=== PATIENT | female | born 1990 | race Caucasian/White ===

== ENCOUNTER 2019-02-18 00:14 | Observation (INO) | payer SELFPAY ==
[~2019-02-18] VITALS: Ht 165.1 cm; Wt 54.5 kg
[2019-02-18] VITALS (22 sets, daily range): BP systolic 80–109; BP diastolic 53–77
--- NOTE | 2019-02-18 00:20 | NUR ---
PT. TO ROOM 10 AFTER PT. FRIENDS CALLED EMS STATING PT. OVER DOSED ON SUSPECTED AMBIEN. EMPTY CONTAINERS FOUND ON FLOOR. THEY STATE PT. HAD VOMITED AND SOILED HERSELF WITH BM. UPON ARRIVAL TO ED PT. WAS SLURING HER WORDS. WHEN ASKED IF SHE TRIED TO KILL HERSELF PT. DID NOT ANSWER. PT. STOMACH HAD CUT DARNELL ON IT. AND ALSO SOME ON HER FOREARMS. SKIN WARM AND DRY TO TOUCH, COLOR PALE RESP. EVEN AND UNLABORED.
--- NOTE | 2019-02-18 00:42 | NUR ---
IVF STARTED PER MD ORDER.
[2019-02-18 00:44] LABS: HEMOGLOBIN 12.4 g/dl (12.0-16.0); IMMATURE GRANULOCYTES 0.5 % (0.0-5.0); MEAN CELL VOLUME 88.7 fL CALC (80.0-100.0); MEAN CORPUSCULAR HGB 29.7 pG CALC (26.0-32.0); MEAN CORPUSCULAR HGB CONC 33.5 g/L CALC (32.0-36.0); NEUT# 13.45 thou/uL (2.00-7.15); RED BLOOD COUNT 4.17 mill/uL (4.20-5.60); RED CELL DISTRI WIDTH 11.9 % (11.5-15.5)
--- NOTE | 2019-02-18 00:45 | NUR ---
MICHAELS CATH INSERTED. PATIENT AND DRAINING A SCANT AMT. OF YELLOW URINE.
[2019-02-18 01:08] LABS: ALBUMIN 4.1 g/dL (3.2-5.0); ALKALINE PHOSPHATASE 50 u/l (38-126); ANION GAP 15 (6-22 (CALC)); BILIRUBIN, TOTAL 0.7 mg/dL (0.0-1.4); BUN 14 mg/dL (7-17); BUN/CREATININE RATIO 23 (12-20 (CALC)); CARBON DIOXIDE 21 mmol/l (22-30); CHLORIDE 107 mmol/l (95-108); CREATININE 0.6 mg/dL (0.5-1.0); GFR > 60 ML/MIN (>=60 (CALC)); GFR FOR AFR.AMER. > 60 ML/MIN (>=60 (CALC)); MAGNESIUM 1.5 mg/dL (1.6-2.3); POTASSIUM 3.7 mmol/l (3.5-5.1); SGOT/AST 21 u/l (14-36); SODIUM 139 mmol/l (137-146)
[2019-02-18 01:14] LABS: ETHYL ALCOHOL 0 mg/dl (0-30)
--- NOTE | 2019-02-18 01:20 | NUR ---
PT. RESTING QUIETLY IN BED. WILL AROUSE BUT QUICKLY RETURNS TO SLEEP. RESP. EVEN AMD UNLABORED.
[2019-02-18 02:00] LABS: URINE BILIRUBIN - DIPSTICK NEGATIVE (NEGATIVE); URINE BLOOD DIPSTICK NEGATIVE (NEGATIVE); URINE COLOR YELLOW; URINE GLUCOSE - DIPSTICK 500 mg/dL (NEGATIVE); URINE KETONE 40 mg/dL (NEGATIVE); URINE LEUK ESTERASE NEGATIVE (NEGATIVE); URINE NITRITE - DIPSTICK NEGATIVE (Negative); URINE PROTEIN - DIPSTICK NEGATIVE (NEG-TRACE); URINE UROBILINOGEN - DIPSTICK 0.2 E.U./dL (0.2)
[2019-02-18 02:04] LABS: BARBITURATES NEGATIVE (NEGATIVE); COCAINE NEGATIVE (NEGATIVE); METHADONE NEGATIVE (NEGATIVE); OXCYCODONE NEGATIVE (NEGATIVE); TETRAHYDROCANNABIONOL NEGATIVE (NEGATIVE); TRICYLIC ANTIDEPRESSANTS NEGATIVE (NEGATIVE)
--- NOTE | 2019-02-18 02:23 | NUR ---
Admission Note Report Given to: CHUCK SANDERS Transported by: Wheelchair X Stretcher Transported with: X Nurse Transporter X Patent IV O2 X Transmission Line Engineer
--- NOTE | 2019-02-18 02:33 | NUR ---
MICHAELS CATH EMPTIED FRO 500 ML CLEAR YELLOW URINE.
--- NOTE | 2019-02-18 02:35 | NUR ---
PT. TAKEN TO ICU VIA STRETCHR.
--- NOTE | 2019-02-18 02:40 | NUR ---
PATIENT ARRIVES VIA ER STRETCHWR WITH NURSE KALPANA. PATIENT SELF TRANSFERS TO BED. ON ROOM AIR. HEAD TO TOE NURSING ASSESSMENT PERFORMED. PATIENT DROWSY AND AROUSES WHEN SPOKEN TO ONLY, ORIENTED X3. WHEN ASKED QUESTIONS REGARDING MEDICAL HISTORY PATIENT DENIES, PATIENT STATES, " I DON'T REMEMBER TO MOST QUESTIONS." POC EXPLAINED TO PATIENT. SITTER EXPLAINED TO PATIENT. ALSO EXPLAINE SHE CANNOT HAVE PERSONAL BELONGINGS AT BEDSIDE, SHE AGREES. SITTER AT BEDSIDE. LFA EMS SITE INTACT AND FLUSHES. PATIENT HAS SCRATCH LIKE LACERATIONS ON ABDOMEN, DRIED. SELF REPOSITIONS. CALL LIGHT WITHIN REACH. WILL CONTINUE TO MONITOR.
--- NOTE | 2019-02-18 04:22 | NUR ---
PATIENT LAYING SUPINE, EYES CLOSED, EASILY AROUSES WHEN SPOKEN TO. SITTER AT BEDSIDE. CALL LIGHT WITHIN REACH.
--- NOTE | 2019-02-18 05:10 | NUR ---
ALEX [facility] CALLED TO RECEIVE UPDATE OF PATIENT. ASKED FOR LAB VALUES, LAST VITALS. HE REPORTED HE WILL CALL AGAIN TODAY FOR MORE UPDATES.
--- NOTE | 2019-02-18 06:15 | NUR ---
PATIENT LAYS SUPINE, RESTING WITH EYES CLOSED. NO ACUTE DISTRESS SHOWN. SITTER AT BEDSIDE. CALL LIGHT WITHIN REACH.
--- NOTE | 2019-02-18 06:45 | NUR ---
RECVD REPORT TOMMY WOODS @START OF SHIFT
--- NOTE | 2019-02-18 07:30 | NUR ---
BREAKFAST TRAY PLACED IN ROOM. PT STATES SHES NOT HUNGRY. TRAY LEFT. SITTER AT BEDSIDE.
--- NOTE | 2019-02-18 09:24 | NUR ---
DR MON @BEDSIDE ASSESSING PT. PT EXTREMELY RUDE TOWARD STAFF. PT ADMITS TO DEPRESSION BUT DOESNT REMEMBER TAKING MEDICATION LAST NIGHT.
--- NOTE | 2019-02-18 09:35 | NUR ---
CALLED DR MATTHEW DOZIER @[phone] WHO PRESCRIBED PTS MEDICATIONS. DR DOZIER ON VACATION, DR MON SPOKE WITH LUKE ULLOA.
--- NOTE | 2019-02-18 10:04 | NUR ---
PT GIVEN A WARM BLANKET & HER GLASSES.
--- NOTE | 2019-02-18 10:10 | NUR ---
VERBAL ORDERS FROM DR MON TO REMOVE CATH MICHAELS. 9ml FLUID REMOVED FROM CATH MICHAELS BUBBLE. CATH MICHAELS REMOVED W/OUT INCIDENT.
--- NOTE | 2019-02-18 11:00 | NUR ---
PT EDUCATED ON POC & NELSON ACT. PT CONCERNED ABOUT ATTIRE UPON DC FROM ICU. PT REMAIN TEARFUL, SLIGHTLY BETTER WITH VERBAL CUES/RELAXATION. SITTER REMAINS AT BEDSIDE.
--- NOTE | 2019-02-18 11:32 | NUR ---
EMS IV SITE CHANGED. PT REMAINS TEARFUL AFTER VERBAL CUES & MEDICATION, TYRING REDIRECTION. PT ASKED ABOUT LOCAL FAMILY; PT DENIES HAVING ANY FAMILY HERE. PT STATES SHE LIVE WITH & TAKES CARE OF AN OLD LADY.
--- NOTE | 2019-02-18 11:53 | NUR ---
SERAFIN & HEATHER @BEDSIDE WITH PT A LIASON BETWEEN PT (NELSON ACT) & MOM (VISITOR DOWNSTAIRS).
--- NOTE | 2019-02-18 12:04 | NUR ---
PT REFUSING LUNCH.
--- NOTE | 2019-02-18 12:19 | NUR ---
PT LAUGHING/JOKING WITH STAFF, TELLING GROSS STORIES. PT STILL REFUSING FOOD, STATING SHE REALLY DOESNT EAT MUCH DURING THE DAY. REQUESTS MORE APPLE JUICE. SITTER REMAINS AT BEDSIDE.
--- NOTE | 2019-02-18 12:56 | NUR ---
MAINTENANCE @BEDSIDE TO FIX DOORS.
[2019-02-18] MEDS ORDERED: CITALOPRAM20 M1 PO (13:18)
[2019-02-18] MEDS ORDERED: ZOLPIDEM10 M1 PO (13:19)
[2019-02-18] MEDS ORDERED: MIRTAZAPINE15 M1 PO (13:20)
[2019-02-18] MEDS ORDERED: TRAZODONE100 MG PO (13:21)
[2019-02-18] MEDS ORDERED: ADDERALL20 MG PO (13:23)
--- NOTE | 2019-02-18 14:14 | NUR ---
PRINTED OUT WORD SEARCHES FOR PT PER HER REQUEST. STATES SHE DOESNT WATCH TV. SITTER REMAINS AT BEDSIDE.
--- NOTE | 2019-02-18 15:46 | NUR ---
PT RESTING IN BED, CALM. NO S/S OF DISTRESS. PT CONTINUES TO ASK QUESTIONS ABOUT NELSON ACT & MEDICAL CLEARANCE. QUESTIONS ANSWERED TO BEST OF MY ABILITY. WILL CONTINUE TO MONITOR.
--- NOTE | 2019-02-18 16:55 | NUR ---
PT UP TO SINK TO BRUSH TEETH. PT CONVERSING FREELY WITH STAFF, APPEARS HAPPY. PT REQUESTS MORE ATIVAN.
--- NOTE | 2019-02-18 17:30 | NUR ---
PT GIVEN PLAIN PAPER & COLORED PENCILS, PER REQUEST.
--- NOTE | 2019-02-18 17:35 | NUR ---
PT SITTING UP IN BED, EATING DINNER.
--- NOTE | 2019-02-18 17:48 | NUR ---
PT SLEEPING IN BED. DID NOT EAT DINNER, STATES "MAYBE LATER". TRAY LEFT IN ROOM. SITTER @BEDSIDE.
--- NOTE | 2019-02-18 19:24 | NUR ---
PATIENT HAS AWOKEN. DROWSY, ANSWERS QUESTIONS, FOLLOWS COMMANDS. SITTER AT BEDSIDE. CALL LIGHT WITHIN REACH.
--- NOTE | 2019-02-18 19:26 | NUR ---
PATIENTREMINDED SHE HAS DINNER TRAY AND CAN BE REHEATED IF SHE DECIDES TO EAT TONIGHT.
--- NOTE | 2019-02-18 20:40 | NUR ---
PATIENT LAYS SUPINE IN BED, RESTS WITH EYES CLOSED. NO SOB NOTED. NO ACUTE DISTRESS NOTED. FOLLOWS DIRECTIONS. HEAD TO TOE NURSING ASSESSMENT COMPLETED. LFA 20 G IV INTACT AND FLSUHING. NS WITH 20 MEQ OF POTASSIUM IS INFUSING PROPERLY. PATIENT HAS NO COMPLAINTS OF PAIN. TEMP 99.5 FAHRENHEIT. SR ON TELEMETRYY. PATIENT IS CALM. NO ANXIETY OR AGITATION NOTED AT THIS TIME. SITTER AT BEDSIDE. CALL LIGHT WITHIN REACH. SELF REPOSITIONS. WILL CONTINUE TO MONITOR.
--- NOTE | 2019-02-18 22:00 | NUR ---
PATIENT LAYING SUPINE. RESTING WITH EYES CLOSED. ON ROOM AIR. SITTER AT BEDSIDE. CALL LIGHT WITHIN REACH.
--- NOTE | 2019-02-19 01:03 | NUR ---
PATIENT UP TO RESTROOM. WALKS WITH STEADY GAIT. PATIENT REQUESTS ATIVAN. SITTER AT BEDSIDE. NO COMPLAINST OF PAIN. NO OTHER NEEDS AT THIS TIME. FOOD AND FLUIDS WERE OFFERED, SHE REFUSES AT THIS TIME. CALL LIGHT WITHIN REACH.
[2019-02-19 01:06] VITALS: BP 87/63
[2019-02-19 03:03] VITALS: BP 84/57
--- NOTE | 2019-02-19 04:05 | NUR ---
PATIENT LIES SUPINE IN BED, RESTS WITH EYES CLOSED. NO NEEDS AT THIS TIME. ON ROOM AIR, SATS 99%. SITTER AT BEDSIDE. CALL LIGHT WITHIN FREACH.
[2019-02-19 05:03] VITALS: BP 86/58
--- NOTE | 2019-02-19 06:23 | NUR ---
patient laying supine, resting with eyes closed. arouses easily when spoken to. no acute distress shown. call light within reach. sitter at bedside.
[2019-02-19 07:40] VITALS: BP 91/55
--- NOTE | 2019-02-19 07:40 | NUR ---
PT WOKE. PT IS PLEASANT AND COOPERATIVE. ALERT AND ORIENTED X4. RESP EVEN AND UNLABORED. O2 SAT 100% ON R/A. PT IS NELSON ACT WITH SITTER AT BESIDE FOR PTS SAFETY. PT DOES NOT APPEAR ANXIOUS. LUNGS CLEAR BILAT. ABD SOFT AND NONDISTENDED WITH BOWEL SOUNDS PRESENT. SCRATCHES NOTED TO ABD. NO LOWER EXT EDEMA NOTED. PEDAL PULSES PALPATED BILAT. IV SITE PATENT IN LEFT A.C. NO REDNESS OR SWELLING AT SITE. IVF NS+20KCL AT 75CC/HR. PT DENIES ANY PAIN OR DISCOMFORT. MONITOR READING SR . SITTER REMAINS AT BEDSIDE. WILL CONTINUE TO CLOSELY MONITOR. FREQUENT ROUNDS MADE. CALL GONZALEZ WITHIN REACH.
--- NOTE | 2019-02-19 08:15 | NUR ---
DR DUVAL INTO SPEAK WITH PT AND CLEARED [facility]. PT CALM AND COOPERATIVE. DR DUVAL INFORMED MG LEVEL IN E.R. WAS 1.5. LABS ORDERED BY DR DUVAL PRIOR TO DISCHARGE. IVF STOPPED PER DR DUVAL. SITTER AT BEDSIDE. PT OFFERS NO COMPLAINTS. CALL GONZALEZ WITHIN REACH.
[2019-02-19 09:00] VITALS: BP 91/61
[2019-02-19 09:33] LABS: ANION GAP 10 (6-22 (CALC)); BUN 4 mg/dL (7-17); BUN/CREATININE RATIO 6 (12-20 (CALC)); CARBON DIOXIDE 24 mmol/l (22-30); CHLORIDE 111 mmol/l (95-108); CREATININE 0.7 mg/dL (0.5-1.0); GFR > 60 ML/MIN (>=60 (CALC)); GFR FOR AFR.AMER. > 60 ML/MIN (>=60 (CALC)); MAGNESIUM 1.7 mg/dL (1.6-2.3); SODIUM 142 mmol/l (137-146)
[2019-02-19 09:40] LABS: HEMATOCRIT 34.7 % (37.0-47.0); HEMOGLOBIN 11.4 g/dl (12.0-16.0); MEAN CELL VOLUME 90.1 fL CALC (80.0-100.0); MEAN CORPUSCULAR HGB 29.6 pG CALC (26.0-32.0); MEAN CORPUSCULAR HGB CONC 32.9 g/L CALC (32.0-36.0); RED BLOOD COUNT 3.85 mill/uL (4.20-5.60); RED CELL DISTRI WIDTH 12.2 % (11.5-15.5)
--- NOTE | 2019-02-19 10:00 | NUR ---
REPEAT LABS NORMAL. VSS. RESP EVEN AND UNLABORED. HEPLOCK D/LESLIE WITH CATHETER INTACT. PT GIVEN HER BELONINGS A BRA, PANITIES AND CELL PHONE AND GLASSES. MONITOR D/LESLIE. WAITING ON TRANSPORT. PT COOPERATIVE. SITTER REMAINS WITH PT.
--- NOTE | 2019-02-19 10:22 | NUR ---
PT DISCHARGED AMBULATORY ACCOMPANIED BY POLICE. POLICE GIVEN PTS INFO AND INFORMED PT IS A NELOSN ACT DUE TO OVERDOSE. INFORMED PT ONLY HAS CELL PHONE AND HAS BEEN COOPERATIVE. PT DISCHARGED IN STABLE CONDITION AMBULATORY WITH OFFICER.
== END 2019-02-19 10:22 | DRG 881 ==
LOC: ED 00:14 → ED-I 00:26 → ED 02:22 → ICU 02:23
PROVIDERS: Family Medicine; Internal Medicine; ADMIT Internal Medicine; ATTEND Internal Medicine
PROC: 0T9B70Z Drainage of Bladder with Drainage Device, Via Natural or Artificial Opening (ICD-10-PCS; principal; 2019-02-18)
DX: F32.9 Major depressive disorder, single episode, unspecified (principal); F84.5 Asperger's syndrome; F98.8 Other specified behavioral and emotional disorders with onset usually occurring in childhood and adolescence; F41.9 Anxiety disorder, unspecified; R00.0 Tachycardia, unspecified
CPT/HCPCS: J2060